=== PATIENT | male | born 1970 ===

== ENCOUNTER 2021-04-11 01:07 | Observation (INO) | payer OTHER ==
[2021-04-11] MEDS ORDERED: Lorazepam 2 MG/ML VIAL ONE (01:22)
[2021-04-11] MEDS ORDERED: Haloperidol Lactate 5 MG/ML VIAL ONE ×2 (01:27→01:36)
[2021-04-11 01:42] LABS: #Eosinphils 0.1 thou/uL (0.0-0.7); #Lymphocytes 1.2 thou/uL (1.20-3.40); #Monocytes 0.5 thou/uL (0.11-0.59); #Neutrophils 6.9 thou/uL (1.40-6.50); %Basophils 0.3 % (0.0-1.0); %Eosinophils 0.7 % (0.0-10.0); %Lymphocytes 13.9 % (21.0-51.0); %Monocytes 6.2 % (0.0-10.0); %Neutrophils 78.8 % (42.0-75.0); Hemoglobin 15.7 g/dL (14.0-18.0); Mean Corpuscular HGB CONC 34.4 g/dL (32.0-36.0); Mean Corpuscular Hemoglobin 31.4 pg (27.0-31.0); Mean Corpuscular Volume 91.1 fL (78.0-98.0); Mean Platelet Volume 8.1 fL (7.4-10.4); Platelet Count 239 thou/uL (130-400); RBC Distribution Width 11.8 % (11.5-14.5); Red Blood Cell (RBC) Count 5.01 mill/uL (4.70-6.10); White Blood Cell (WBC) Count 8.8 thou/uL (4.8-10.8)
[2021-04-11 01:58] LABS: Amphetamine Detected (NotDetected); Barbiturates Screen Not Detected (NotDetected); Benzodiazepine Screen Not Detected (NotDetected); Cocaine Metabolite Screen Not Detected (NotDetected); Methadone Not Detected (NotDetected); Methamphetamine Detected (NotDetected); Opiate Screen Not Detected (NotDetected); Oxycodone Screen Not Detected (NotDetected); Phencyclidine (PCP) Not Detected (NotDetected); THC/Cannabinoid Screen Detected (NotDetected); Tricyclic Screen Not Detected (NotDetected)
[2021-04-11 02:32] LABS: ALT (SGPT) 31 U/L (8-55); AST (SGOT) 19 U/L (5-34); Albumin 4.2 g/dL (3.5-5.0); Alcohol Less than 10 mg/dL (Less than 10); Alkaline Phosphatase 85 U/L (40-110); BUN (Urea Nitrogen) 13 mg/dL (8.4-25.7); Bilirubin, Total 0.7 mg/dL (0.2-1.2); CK (CPK) 265 U/L (30-200); Calc. Creatinine Clearance 0 mL/min (70-130); Calcium 9.3 mg/dL (7.8-10.44); Carbon Dioxide 18 mmol/L (22-29); Globulin 3.2 g/dL (2.4-3.5); Glucose 126 mg/dL (70-105); Protein, Total 7.4 g/dL (6.0-8.3)
[2021-04-11 03:37] LABS: Chloride 103 mmol/L (98-107); Potassium 3.7 mmol/L (3.5-5.1); Sodium 138 mmol/L (136-145)
[2021-04-11 03:40] LABS: Anion Gap 17 mmol/L (10-20)
[2021-04-11 04:31] LABS: Lactic Acid 1.6 mmol/L (0.5-2.2)
[2021-04-11] MEDS ORDERED: Iopamidol 370 76% 100 ML VIAL ONE (09:19)
[2021-04-11] MEDS ORDERED: HYDROcodone/Acetaminophen 5/325 mg Tablet PO PRN (10:50)
[2021-04-11] MEDS ORDERED: Senokot S 8.6-50 MG TAB PO PRN (10:50)
[2021-04-11] MEDS ORDERED: Acetaminophen 325 MG TAB PO PRN (10:50)
[2021-04-11] MEDS ORDERED: Ondansetron PF 4 MG/2 ML Vial IVP PRN (10:50)
[2021-04-11] MEDS ORDERED: Lorazepam 2 MG/ML VIAL SLOW IVP PRN (11:12)
[2021-04-11] MEDS: Sodium Chloride 0.9% 1,000 ML IV SCH ×3 (14:45→21:12)
[2021-04-11] MEDS: Famotidine/PF 20 mg/2ml Vial SLOW IVP SCH (21:13)
[2021-04-11 21:15] VITALS: BMI 24.2
[2021-04-12] MEDS: Sodium Chloride 0.9% 1,000 ML IV SCH ×3 (03:59→16:32)
[2021-04-12 04:14] LABS: #Eosinphils 0.2 thou/uL (0.0-0.7); #Lymphocytes 1.5 thou/uL (1.20-3.40); #Neutrophils 5.7 thou/uL (1.40-6.50); %Basophils 0.5 % (0.0-1.0); %Eosinophils 2.9 % (0.0-10.0); %Lymphocytes 17.4 % (21.0-51.0); %Monocytes 11.4 % (0.0-10.0); %Neutrophils 67.8 % (42.0-75.0); Hemoglobin 15.3 g/dL (14.0-18.0); Mean Corpuscular HGB CONC 32.3 g/dL (32.0-36.0); Mean Corpuscular Hemoglobin 30.5 pg (27.0-31.0); Mean Corpuscular Volume 94.4 fL (78.0-98.0); Mean Platelet Volume 8.2 fL (7.4-10.4); Platelet Count 197 thou/uL (130-400); Red Blood Cell (RBC) Count 5.03 mill/uL (4.70-6.10); White Blood Cell (WBC) Count 8.4 thou/uL (4.8-10.8)
[2021-04-12 04:37] LABS: Anion Gap 12 mmol/L (10-20); BUN (Urea Nitrogen) 12 mg/dL (8.4-25.7); Calc. Creatinine Clearance 116 mL/min (70-130); Calcium 8.5 mg/dL (7.8-10.44); Carbon Dioxide 22 mmol/L (22-29); Chloride 110 mmol/L (98-107); Glucose 65 mg/dL (70-105); Potassium 4.1 mmol/L (3.5-5.1); Sodium 140 mmol/L (136-145)
[2021-04-12 05:03] LABS: SARS-CoV-2 NAA Rapid Test Not Detected (NotDetected)
[2021-04-12] MEDS: Famotidine/PF 20 mg/2ml Vial SLOW IVP SCH (08:40)
[2021-04-12] MEDS ORDERED: Enoxaparin Sodium 40 MG/0.4 ML SYRINGE SC SCH (09:00)
[2021-04-12 16:05] VITALS: BP 144/87; TEMP 97.9
== END 2021-04-12 16:36 | disposition home or self-care (01) ==
LOC: ERS 01:07 → ERHOLD 10:50 → 2NO 14:17
PROVIDERS: ADMIT Hospitalist; ATTEND Internal Medicine
DX: T40.711A Poisoning by cannabis, accidental (unintentional), initial encounter (principal); G92.8 Other toxic encephalopathy; F15.10 Other stimulant abuse, uncomplicated; F12.10 Cannabis abuse, uncomplicated; M50.322 Other cervical disc degeneration at C5-C6 level; M48.02 Spinal stenosis, cervical region; K40.20 Bilateral inguinal hernia, without obstruction or gangrene, not specified as recurrent; I51.7 Cardiomegaly; R16.0 Hepatomegaly, not elsewhere classified; N40.0 Benign prostatic hyperplasia without lower urinary tract symptoms; M79.604 Pain in right leg; Z88.0 Allergy status to penicillin; Z20.822 Contact with and (suspected) exposure to COVID-19; V44.5XXA Car driver injured in collision with heavy transport vehicle or bus in traffic accident, initial encounter
CPT/HCPCS: 36415; 70450; 71260; 72125; 74177; 80048; 80053; 80306; 80307; 82550; 83605; 84484; 85025; 93005; 96372; 96374; 96375; 96376; G0378; J1630; J1650; J2060; J7050; Q9967; S0028; U0002